=== PATIENT | male | born 2000 | race Hispanic/Latino ===

== ENCOUNTER 2023-08-04 15:21 | Emergency (ER) | payer OTHER ==
[~2023-08-04] VITALS: Ht 175.3 cm; Wt 66.4 kg
[2023-08-04 19:40] VITALS: BP 138/65; TEMP 97.3; O2SAT 98
== END 2023-08-04 19:42 | disposition home or self-care (01) ==
LOC: M ED 15:21
DX: L63.9 Alopecia areata, unspecified (principal)

== ENCOUNTER 2025-05-03 08:13 | Emergency (ER) | payer OTHER ==
[~2025-05-03] VITALS: Ht 175.3 cm; Wt 59.1 kg
[2025-05-03] MEDS ORDERED: ONDA-282 PO (08:26)
[2025-05-03 10:11] VITALS: BP 113/71; TEMP 97.8; O2SAT 97
[2025-05-03 10:26] LABS: BASO # 0.0 10^3/uL (0.0-0.2); BASO % 0.5 % (0.0-1.0); EOS # 0.1 10^3/uL (0.0-0.5); EOS % 1.2 % (0.0-3.0); LYMPH # 1.8 10^3/uL (1.5-5.0); LYMPH % 28.2 % (24.0-44.0); MONO # 0.6 10^3/uL (0.0-0.8); MONO % 8.9 % (2.0-8.0); NEUTROPHILS # 4.0 10^3/uL (1.5-8.5); NEUTROPHILS % 60.9 % (36.0-66.0); PLATELET COUNT, AUTOMATED 221 10^3/uL (150-450)
[2025-05-03 10:54] LABS: ALT/SGPT 15 U/L (7.0-40); AST/SGOT 19 U/L (<34); CALCIUM LEVEL 9.0 MG/DL (8.5-10.1); CARBON DIOXIDE LEVEL 30 MMOL/L (20-31); CHLORIDE LEVEL 103 MMOL/L (98-107); CREATININE FOR GFR 0.93 MG/DL (0.70-1.30); GLOMERULAR FILTRATION RATE > 90.0 (>60); POTASSIUM SERUM 4.1 MMOL/L (3.5-5.1); SODIUM LEVEL 139 MMOL/L (136-145)
== END 2025-05-03 12:21 | disposition home or self-care (01) ==
LOC: M ED 09:54
DX: R11.2 Nausea with vomiting, unspecified (principal); R19.7 Diarrhea, unspecified

== ENCOUNTER 2025-05-22 10:34 | Emergency (ER) | payer OTHER ==
[~2025-05-22] VITALS: Ht 177.8 cm; Wt 64.0 kg
[~2025-05-22 10:34] MED LIST: ONDA-282 PO
[2025-05-22] MEDS: IBUPROFEN 600 MG TAB PO ONE (12:41)
[2025-05-22 13:10] VITALS: BP 141/58; TEMP 98; O2SAT 97
== END 2025-05-22 13:11 | disposition home or self-care (01) ==
LOC: M ED 10:34
DX: U07.1 COVID-19 (principal)

== ENCOUNTER 2025-05-30 07:25 | Emergency (ER) | payer OTHER ==
[~2025-05-30] VITALS: Ht 175.3 cm; Wt 59.1 kg
[2025-05-30 10:30] VITALS: BP 130/89; TEMP 98.1; O2SAT 98
[2025-05-30] MEDS: ACETAMINOPHEN 325 MG TAB PO ONE (10:30)
== END 2025-05-30 10:39 | disposition home or self-care (01) ==
LOC: M ED 07:25
DX: J06.9 Acute upper respiratory infection, unspecified (principal)